=== PATIENT | male | born 2000 | race Caucasian/White ===

== ENCOUNTER 2022-01-23 17:03 | Emergency (ER) | payer OTHER, BC ==
[~2022-01-23] VITALS: Ht 175.3 cm; Wt 79.4 kg
[2022-01-23] MEDS ORDERED: CYCL10 PO (20:47)
== END 2022-01-23 21:36 | disposition home or self-care (01) ==
LOC: ER 17:03
DX: M54.50 Low back pain, unspecified (principal)
CPT/HCPCS: A9270; J1885